=== PATIENT | male | born 1940 | race Caucasian/White ===

== ENCOUNTER → 2019-11-12 | Outpatient (CLI) | payer MEDICARE, OTHER ==
[~2019-11-12] MED LIST: ASPIRIN 32325 MG/TAB PO; CALTRATE-600 W600 MG PO; LUMIGAN EYE GTTS OU; MVI
== END ==
LOC: COL.VAS 07:26
DX: H34.13 Central retinal artery occlusion, bilateral (principal); I08.3 Combined rheumatic disorders of mitral, aortic and tricuspid valves

== ENCOUNTER → 2021-10-14 | Outpatient (CLI) | payer MEDICARE, OTHER | LOC: COL.RAD 10-08 09:00 | DX: H47.20 Unspecified optic atrophy (principal) | CPT/HCPCS: A9585 ==